=== PATIENT | male | born 1955 | race Caucasian/White ===

== ENCOUNTER 2017-05-06 07:11 | Day surgery (SDC) | payer OTHER ==
[2017-05-02 10:44] VITALS: BMI 25.0
--- NOTE | 2017-05-02 11:14 | PAT Medication Instructions ---
Service Date May 02, 2017. Current Home Medication List Folic Acid (Folvite), 1 MG PO DAILY Multivitamin (Multivitamin), 1 TAB PO DAILY Nadolol (Corgard), 0.5 TAB PO QAM Omeprazole (Prilosec), 40 MG PO QAM Thiamine Hcl (Vitamin B-1), 100 MG PO DAILY Medication Instructions For Your Scheduled Surgery - Hold the following medications the morning of surgery: Folic Acid (Folvite), 1 MG PO DAILY Multivitamin (Multivitamin), 1 TAB PO DAILY Thiamine Hcl (Vitamin B-1), 100 MG PO DAILY - Take the following medications the morning of surgery with a sip of water: Nadolol (Corgard), 0.5 TAB PO QAM Omeprazole (Prilosec), 40 MG PO QAM If you have any questions please call us at [phone] or [phone] or [phone]
[~2017-05-06] VITALS: Ht 172.7 cm; Wt 76.8 kg
[~2017-05-06 07:11] MED LIST: CEFAZOLIN 2000MG IV PUSH 15 ML IV SCH; FOLI1TAB8 PO; LACTATED RINGER'S 1000ML 1,000 ML IV SCH; MULT-506 PO; NADO20TA PO; PRLSR20 PO; THIA100T11 PO
[2017-05-06 07:35] VITALS: BP 112/69; PULSE 63; TEMP 36.8; O2SAT 98; Ht 172.7 cm; Wt 76.8 kg
--- NOTE | 2017-05-06 11:31 | History & Physical Bridge Note ---
H&P Re-Evaluation Bridge Note: I have examined the patient, reviewed the History & Physical and in the interval since the performance of the History & Physical I have noted the following changes of clinical significance: No changes noted
[2017-05-06] MEDS ORDERED: LIDOCAINE HCL 1% 20 ML VIAL ONE (11:57)
[2017-05-06] MEDS ORDERED: BUPIVACAINE 0.5 % 5 MG/1 ML MPF 30ML VIAL ONE (11:57)
[2017-05-06] MEDS ORDERED: MIDAZOLAM HCL 1 MG/ML 2ML VIAL ONE (12:13)
[2017-05-06] MEDS ORDERED: FENTANYL CITRATE INJ 50 MCG/1 ML 2 ML VIAL ONE ×2 (12:13→14:03)
[2017-05-06] MEDS ORDERED: PROPOFOL IV EMULSION 10 MG/ML 20 ML VIAL IV ONE (13:33)
[2017-05-06] MEDS ORDERED: EpHEDrine SULFATE INJ 50 MG/ML AMP ONE (13:33)
[2017-05-06] MEDS ORDERED: LIDOCAINE HCL 2% 2 ML VIAL (20MG/ML) ONE (13:33)
[2017-05-06] MEDS ORDERED: DEXAMETHASONE SOD INJ 4 MG/ML VIAL ONE (13:33)
[2017-05-06] MEDS ORDERED: ONDANSETRON INJ 2 MG/ML 2 ML VIAL ONE (13:33)
--- NOTE | 2017-05-06 13:34 | [facility] Post Operative Brief Note ---
Immediate Operative Summary Operative Date May 06, 2017. Pre-Operative Diagnosis Inguinal Hernia, right side. Post-Operative Diagnosis same as pre-operative Procedure(s) Performed Open Repair Right Inguinal Hernia with Mesh Surgeon Dr. Antony Reid Concrete Technician Surgeon(s) Ema Mares PA-C Estimated Blood Loss 10ml Findings Consistent with Post-Op Diagnosis right indiert inguinal hernia Fluids (cc crystalloids) 1000ml Specimens none Drains None Anesthesia Type General Complication(s) none Disposition Accompanied Pt To Recover: yes Disposition: Recovery Room / PACU
[2017-05-06] MEDS ORDERED: BACITRACIN OINT 15 GM TUBE ONE (13:35)
[2017-05-06] MEDS ORDERED: OXYC-57 PO (13:46)
--- NOTE | 2017-05-06 13:51 | Discharge Instructions ---
Discharge Instructions Date of Service May 06, 2017. Admission Reason for Admission: Right Inguinal Hernia Discharge Discharge Diagnosis / Problem: same Discharge Goals Goal(s): Decrease discomfort, Improve function Activity Recommendations Activity Limitations: per Instructions/Follow-up section No heavy lifting over 10 pounds for 4-6 weeks No strenuous activity until cleared by surgeon No submerging incisions underwater for 2 weeks (no bathing, swimming, or hot tubs) No driving while taking narcotic pain medication or until you are pain free . Instructions / Follow-Up Instructions / Follow-Up You may shower in 4 days. Sponge bath and wash hair in meantime. Try to keep dressing clean and dry. After 4 days. Remove dressing and shower. Replace dressing daily or as needed to keep clean and dry. Leave steri strips on incision for 7 days and then remove. They may fall off on their own that is okay. Walking and light activity is encouraged. You will be given prescription for narcotic pain medication to take as needed for moderate to severe pain. This medication may make you drowsy. You may take extra strength Ibuprofen/Tylenol as needed for mild pain. Follow-up in surgical office in 1-2 weeks as scheduled. Please call office at [phone] if you do not already have an appointment made. Current Hospital Diet Patient's current hospital diet: Discharge Diet Recommended Diet: Regular Diet Procedures Procedures Performed: Open Repair Right Inguinal Hernia with Mesh Pending Studies Studies pending at discharge: no Medical Emergencies . Who to Call and When: Medical Emergencies: If at any time you feel your situation is an emergency, please call 911 immediately. . Non-Emergent Contact Non-Emergency issues call your: Primary Care Provider, Surgeon Call Non-Emergent contact if: you have a fever, temperature is above 101, your pain is not controlled, your pain is worsening, your pain is unusual for you, wound has increased drainage, wound has increased redness, wound has increased pain . "Provider Documentation" section prepared by Ema Mares. . VTE Core Measure Inpt VTE Proph given/why not?: SCD's [place] Drug Monitoring Program Search Results: patient reviewed within database, no issues identified
[2017-05-06] MEDS ORDERED: OXYCODONE/ACETAMINOPHEN 5-325 TAB PO PRN ×2 (14:00)
[2017-05-06] MEDS ORDERED: ACETAMINOPHEN 325 MG TAB PO PRN (14:00)
[2017-05-06] MEDS ORDERED: MoRPHine SULFATE 4 MG/ML 1 ML CARP\\VIAL IV PRN (14:00)
[2017-05-06] MEDS ORDERED: ONDANSETRON INJ 2 MG/ML 2 ML VIAL IV PRN ×2 (14:00→14:15)
[2017-05-06] MEDS ORDERED: MoRPHine SULFATE 2 MG/ML CARP IV PRN ×2 (14:00)
[2017-05-06] MEDS: FENTANYL CITRATE INJ 50 MCG/1 ML 2 ML VIAL IV PRN ×2 (14:07→14:21)
[2017-05-06] MEDS ORDERED: ATROPINE SULFATE 0.1 MG/ML 5ML SYR IV PRN (14:15)
[2017-05-06] MEDS ORDERED: EpHEDrine SULFATE INJ 50 MG/ML AMP IV PRN (14:15)
--- NOTE | 2017-05-06 14:21 | Anesthesiology Progress Note ---
Anesthesia Post Op Note Date & Time May 06, 2017 at 14:21 Vital Signs Pain Intensity: 5.0 Vital Signs Past 12 Hours Date Time Temp Pulse Resp B/P (MAP) Pulse Ox O2 Delivery O2 Flow Rate FiO2 05/06/17 14:07 61 14 97 05/06/17 14:07 61 14 05/06/17 14:06 125/79 05/06/17 14:05 59 17 05/06/17 14:05 58 17 98 05/06/17 14:01 130/73 05/06/17 14:00 68 17 98 05/06/17 14:00 66 17 05/06/17 13:59 36.1 68 16 141/89 (100) 97 Oxymask 10 05/06/17 13:56 132/83 05/06/17 13:55 70 15 05/06/17 13:55 69 15 99 05/06/17 13:51 141/89 05/06/17 13:50 69 15 97 05/06/17 13:50 69 15 05/06/17 07:35 36.8 63 18 112/69 (83) 98 Room Air Notes Mental Status: alert / awake / arousable, participated in evaluation Pt Amnestic to Procedure: Yes Nausea / Vomiting: adequately controlled Pain: adequately controlled Airway Patency, RR, SpO2: stable & adequate BP & HR: stable & adequate Hydration State: stable & adequate Anesthetic Complications: no major complications apparent
[2017-05-06 14:50] VITALS: BP 125/80; PULSE 82; TEMP 36.6; O2SAT 100
--- NOTE | 2017-05-06 15:16 | OPERATIVE REPORT ---
DATE OF OPERATION: 05/06/2017 PREOPERATIVE DIAGNOSIS: Right inguinal hernia. POSTOPERATIVE DIAGNOSIS: Same. OPERATION: Open repair, right inguinal hernia with mesh. SURGEON: Dr. Antony Reid. PHOTOENGRAVING FINISHER: SAIGE Hernandez ANESTHESIA: General. ESTIMATED BLOOD LOSS: About 10 mL. IV FLUIDS: 1000 mL. FINDINGS: Right indirect inguinal hernia. COMPLICATIONS: None. INDICATIONS FOR THE PROCEDURE: This is a 62-year-old gentleman who presented with a long history of right inguinal hernia. The patient will be required to do open repair, right inguinal hernia with a mesh. I did talk to the patient about the benefit and risk, alternate procedure. I indicated the risks may include but not limited such as bleeding, infection, hernia recurrence, chronic incision pain, injury to other organs. The patient understands. He signed informed consent and I answered all questions. DETAILS OF PROCEDURE: We brought the patient into the OR, put the patient in the supine position. The patient received SCDs on bilateral legs to prevent DVT. Also, the patient received 2 grams Ancef IV for prophylactic antibiotic. The patient received general anesthesia without difficulty. The abdomen was prepped and draped in routine sterile fashion. After a time out, I made an incision on the right inguinal area about 4 cm and opened the external oblique. I immobilized the cord structure and patient had a large indirect hernia. I mobilized the hernia sac, put the hernia sac back to the abdominal cavity. There chose an extra large plug to plug the hernia sac. I used 2-0 Prolene to close the hernia neck. Then I exposed 3 x 5 cm mesh to reinforce the posterior wall. I used 2-0 Prolene mesh to control continuous running and then I used another 2-0 Prolene mesh to right inguinal ligament continuing running 2-0 for me together tied and the mesh sat nicely. No tension. Hemostasis was obtained. Then using 2-0 Vicryl, closed the external oblique with continuous running, closed subcutaneous layer by using 2-0 Vicryl continuous running, closed skin by using 4-0 Vicryl. Then the injection of local anesthesia by using 1% lidocaine mixed with 0.5% Marcaine around the incision. Then we put the dressing on. The patient tolerated the procedure well. All instrument, needle and sponge count correct x2 at the end of case. The patient transferred to recovery room in stable condition. After the procedure, I did talk to the patient's family member about the OR finding and procedure we did. She understands. Also, I gave them the postop care instructions, they understand. I attest to the content of the Intraoperative Record and any orders documented therein. Any exception s are noted below.
[2017-05-06 15:20] VITALS: BP 110/72; PULSE 80; TEMP 36.5; O2SAT 100
[2017-05-07] MEDS ORDERED: CEFAZOLIN SOD 2000MG/15 ML IV PUSH IV ONE (06:00)
== END 2017-05-06 15:34 | disposition home or self-care (01) ==
LOC: C.ACU 07:11
PROVIDERS: ATTEND Surgery
DX: K40.90 Unilateral inguinal hernia, without obstruction or gangrene, not specified as recurrent (principal); Z87.891 Personal history of nicotine dependence; Z79.899 Other long term (current) drug therapy